=== PATIENT | male | born 1970 ===

== ENCOUNTER 2023-04-05 17:26 | Emergency (ER) | payer SELFPAY ==
[2023-04-05] MEDS ORDERED: hydrALAZINE 20 MG/ML VIAL ONE (17:46)
== END 2023-04-05 18:25 | disposition home or self-care (01) ==
LOC: ERS 17:26
DX: S81.811A Laceration without foreign body, right lower leg, initial encounter (principal); I10 Essential (primary) hypertension; E78.5 Hyperlipidemia, unspecified; E11.9 Type 2 diabetes mellitus without complications; W26.8XXA Contact with other sharp object(s), not elsewhere classified, initial encounter
CPT/HCPCS: 96374; J0360